=== PATIENT | female | born 1970 | race American Indian/Alaskan Native ===

== ENCOUNTER 2021-01-27 11:14 | Outpatient (CLI) | payer MEDICARE ==
--- NOTE | 2021-01-27 14:35 | Magnetic Resonance Report ---
CT ABDOMEN WITHOUT CONTRAST INDICATION / CLINICAL INFORMATION: RENAL MASS. TECHNIQUE: Axial CT images were obtained through the abdomen without contrast. All CT scans at this location are performed using CT dose reduction for ALARA by means of automated exposure control. COMPARISON: None available. FINDINGS: LOWER CHEST: No significant abnormality. LIVER: No significant abnormality. GALLBLADDER: Moderately distended without visualization of stones or other significant abnormalities. BILE DUCTS: No significant abnormality. PANCREAS: No significant abnormality. SPLEEN: No significant abnormality. ADRENALS: No significant abnormality. RIGHT KIDNEY / URETER: Subcentimeter simple cysts are seen along the right upper renal pole. No mass or other significant abnormality. LEFT KIDNEY / URETER: Multiple simple cysts are present throughout the left kidney measuring up to 1. 6 cm along the upper pole. No mass or other significant abnormality. STOMACH / SMALL BOWEL: No significant abnormality. COLON: No significant abnormality. APPENDIX: No significant abnormality. PERITONEUM: No free fluid. No fluid collection. LYMPH NODES: No significant adenopathy. AORTA / ARTERIES: No significant abnormality. IVC / VEINS: No significant abnormality. ADDITIONAL FINDINGS: None. SKELETAL SYSTEM: No significant abnormality. IMPRESSION: Bilateral simple renal cysts as above without visualization of a renal mass on this noncontrast study . Signer Name: Lázaro Puga MD Signed: 01/27/2021 2:31 PM Workstation Name: [email or web address]
== END 2021-01-27 11:15 | disposition home or self-care (01) ==
LOC: MRI 11:14
PROVIDERS: ATTEND Urology
DX: N28.1 Cyst of kidney, acquired (principal); N28.89 Other specified disorders of kidney and ureter
CPT/HCPCS: 74181

== ENCOUNTER 2022-01-14 10:33 | Outpatient (CLI) | payer MEDICARE ==
--- NOTE | 2022-01-14 11:38 | Cat Scan Report ---
CT ABDOMEN AND PELVIS WITHOUT CONTRAST INDICATION / CLINICAL INFORMATION: N28.1 CYST OF KIDNEY,ACQUIRED. TECHNIQUE: Axial CT images were obtained through the abdomen and pelvis without IV contrast. All CT scans at this location are performed using CT dose reduction for ALARA by means of automated exposure control. COMPARISON: MRI 01/27/2021 FINDINGS: LOWER CHEST: Small pericardial effusion is nonspecific. LIVER: No significant abnormality. GALLBLADDER: Gallbladder sludge and stones without wall thickening or pericholecystic fluid. BILE DUCTS: No significant abnormality. PANCREAS: No significant abnormality. SPLEEN: No significant abnormality. ADRENALS: No significant abnormality. RIGHT KIDNEY / URETER: No abnormality within limitations of noncontrast exam. LEFT KIDNEY / URETER: Small hypodensities at the upper pole are too small to characterize but likely represent cysts. STOMACH / SMALL BOWEL: No significant abnormality. COLON: No significant abnormality. APPENDIX: No significant abnormality. PERITONEUM: No free fluid. No free air. No fluid collection. LYMPH NODES: No significant adenopathy. AORTA / ARTERIES: No significant abnormality. IVC / VEINS: No significant abnormality. URINARY BLADDER: No significant abnormality. REPRODUCTIVE ORGANS: No significant abnormality. ADDITIONAL FINDINGS: Small fat-containing umbilical hernia. SKELETAL SYSTEM: Multilevel degenerative changes of the spine, most pronounced at L5-S1. No aggressiv e osseous lesion. IMPRESSION: 1. Gallbladder sludge and stones without CT evidence of acute cholecystitis. 2. Small hypodensities at the upper pole of the left kidney likely represent cysts. Evaluation for re nal lesions is limited on this noncontrast exam. 3. Small pericardial effusion is nonspecific, possibly physiologic. Recommend clinical correlation. Signer Name: Hayden Porras MD Signed: 01/14/2022 11:33 AM Workstation Name: [email or web address]
== END 2022-01-14 10:34 | disposition home or self-care (01) ==
LOC: CT 10:33
PROVIDERS: ATTEND Urology
DX: K42.9 Umbilical hernia without obstruction or gangrene (principal); N28.1 Cyst of kidney, acquired; I31.3 Pericardial effusion (noninflammatory)
CPT/HCPCS: 74176